=== PATIENT | female | born 1995 | race African-American/Black ===

== ENCOUNTER 2016-12-02 18:13 | Emergency (ER) | payer OTHER ==
[~2016-12-02 18:13] MED LIST: CIPRO PO; DIFLUCAN PO; LO/OVRAL-281 TAB PO; MOTRIN400 MG PO
[2016-12-02 18:28] LABS: URINE SOURCE CLEAN CATCH
[2016-12-02 18:32] LABS: URINE APPEARANCE CLEAR; URINE BILIRUBIN NEG (NEG); URINE BLOOD 2+ (NEG); URINE COLOR YELLOW; URINE GLUCOSE NEG (NEG); URINE KETONE NEG (NEG); URINE LEUKOCYTE ESTERASE 3+ (NEG); URINE NITRATE NEG (NEG); URINE PROTEIN NEG (NEG); URINE SPECIFIC GRAVITY 1.029 (1.003-1.035)
[2016-12-02 18:35] LABS: CULTURE INDICATED? YES; URBCS1 AUWI 25-50 /[HPF] (0-2); URINE BACTERIA AUWI 2+ (NEGATIVE); URINE SQUAMOUS EPITHELIAL CELL OCC /[HPF]; UWBCS1 AUWI 50-100 (0-5)
[2016-12-06 09:46] LABS: CHLAMYDIA TRACH Not Detected (Not Detected); N GONOR Detected (Not Detected)
== END 2016-12-02 19:24 | disposition home or self-care (01) ==
LOC: CFTX 18:13
PROVIDERS: Physician Assistant
DX: N30.00 Acute cystitis without hematuria (principal); N89.8 Other specified noninflammatory disorders of vagina
CPT/HCPCS: 81003; 84703; 87086; 87491; 87591; 87808; 87905; 99284

== ENCOUNTER 2016-12-22 16:03 | Emergency (ER) | payer OTHER | END 2016-12-22 17:15 | disposition home or self-care (01) | LOC: CFTX 16:03 → CED 16:03 → CFTX 16:59 | DX: A54.9 Gonococcal infection, unspecified (principal) | CPT/HCPCS: 96372; 99283; J0696 ==

== ENCOUNTER 2016-12-23 22:08 | Emergency (ER) | payer OTHER | END 2016-12-23 23:44 | disposition home or self-care (01) | LOC: CED 22:08 | DX: S96.212A Strain of intrinsic muscle and tendon at ankle and foot level, left foot, initial encounter (principal); X58.XXXA Exposure to other specified factors, initial encounter; Y92.9 Unspecified place or not applicable | CPT/HCPCS: 99283 ==